=== PATIENT | female | born 1955 | race Caucasian/White ===

== ENCOUNTER → 2016-11-19 | Outpatient (CLI) | payer BC | LOC: FIMAGING 14:37 | PROVIDERS: ATTEND Internal Medicine | DX: M79.605 Pain in left leg (principal); D68.51 Activated protein C resistance; R79.9 Abnormal finding of blood chemistry, unspecified; R06.00 Dyspnea, unspecified ==

== ENCOUNTER → 2018-10-11 | Outpatient (CLI) | payer BC | LOC: BRMIMAGING 07:42 | PROVIDERS: ATTEND Internal Medicine | DX: R19.02 Left upper quadrant abdominal swelling, mass and lump (principal) | CPT/HCPCS: 76705-PO ==

== ENCOUNTER → 2019-01-17 | Outpatient (CLI) | payer BC | LOC: BMCIMAGING 15:58 ==